=== PATIENT | male | born 1940 | race Caucasian/White ===

== ENCOUNTER 2020-10-13 17:26 | Inpatient (IN) | payer OTHER ==
[2020-10-13] MEDS ORDERED: ACETAMINOPHEN 1000 MG/100 ML VIAL (NON FORMULARY) IVPB ONE (20:04)
[2020-10-13 21:42] LABS: HEMOGLOBIN 13.7 GM/dL (11.7-16.9); MONO % 7.8 % (3.8-10.2); NEUT % 53.2 % (42.8-82.8)
[2020-10-13 21:47] LABS: EOS % 7.4 % (0-4.5); HEMATOCRIT 40.1 % (35.4-49); LYMPH % 27.6 % (8-40); MCH 31.7 pg (25.7-33.7); MCHC 34.1 g/dl (32.0-35.9); MEAN CELL VOLUME 92.9 fl (80-96); MEAN PLT VOLUME 7.8 fl (7.5-11.1); PLATELET COUNT 172 K/MM3 (134-434); RBC 4.32 M/mm3 (4.00-5.60); WHITE BLOOD COUNT 7.3 K/mm3 (4.0-10.0)
[2020-10-13] MEDS ORDERED: ACETAMINOPHEN INJECTION 100 ML IVPB ONE (21:48)
[2020-10-13 21:50] LABS: INR 1.1 (0.83-1.09); PROTHROMBIN TIME (PATIENT) 13.5 SEC (9.7-13.0)
[2020-10-13 21:52] LABS: ACTIVATED PTT 28.7 SECONDS (25.2-36.5)
[2020-10-13 22:05] LABS: CHLORIDE 107 mmol/L (98-107); SODIUM 139 mmol/L (136-145)
[2020-10-13 22:07] LABS: ALBUMIN 3.9 g/dl (3.4-5.0); ANION GAP 6 MMOL/L (8-16); BLOOD UREA NITROGEN 35.2 mg/dL (7-18); CALCIUM 8.6 mg/dL (8.5-10.1); CO2 26 mmol/L (21-32)
[2020-10-13 22:08] LABS: GLUCOSE,RANDOM 77 mg/dL (74-106)
[2020-10-13 22:10] LABS: SGPT/ALT 31 U/L (13-61)
[2020-10-13 22:11] LABS: CREATININE 1.5 mg/dL (0.55-1.3); SGOT/AST 75 U/L (15-37)
[2020-10-13 22:12] LABS: BILIRUBIN,TOTAL 0.8 mg/dL (0.2-1); TOT PROT 7.5 g/dl (6.4-8.2)
[2020-10-13 22:13] LABS: ALK PHOS 75 U/L (45-117)
[2020-10-13] MEDS ORDERED: SODIUM CHLORIDE 1,000 ML IV STA (22:27)
[2020-10-13 22:40] LABS: ERYTHROCYTE SEDIMENTATION RATE 11 mm/hr (0-20)
[2020-10-13 22:44] LABS: ANISOCYTOSIS 1+; MACROCYTOSIS 1+; PLATELET ESTIMATE NORMAL
[2020-10-13] MEDS ORDERED: VANCOMYCIN 1,000 MG in DEXTROSE 5%-WATER - 250 ML IVPB ONE (22:50)
[2020-10-13] MEDS ORDERED: PIPERACILLIN/TAZOB 3.375 GM 3.375 GM in DEXTROSE 5%-WATER - 50 ML IVPB ONE (22:50)
[2020-10-13] MEDS ORDERED: PIPERACILLIN/TAZOB 3.375 GM 3.375 GM/50 ML BAG IVPB ONE (23:21)
[2020-10-14] MEDS ORDERED: VANCOMYCIN 1 GRAM (PRE-DOCKED) 1,000 MG/250 ML BAG IVPB ONE (00:07)
[2020-10-14 04:23] LABS: URINE APPEARANCE CLOUDY; URINE BILIRUBIN NEGATIVE (NEGATIVE); URINE COLOR YELLOW; URINE GLUCOSE (UA) NEGATIVE (NEGATIVE); URINE KETONE NEGATIVE (NEGATIVE); URINE LEUK ESTERASE NEGATIVE (NEGATIVE); URINE NITRITE NEGATIVE (NEGATIVE); URINE PROTEIN NEGATIVE (NEGATIVE); URINE UROBILINOGEN 0.2 mg/dL (0.2-1.0)
[2020-10-14 06:11] LABS: BASO % 2.6 % (0-2.0); EOS % 9.7 % (0-4.5); HEMATOCRIT 35.3 % (35.4-49); HEMOGLOBIN 12.4 GM/dL (11.7-16.9); LYMPH % 25.9 % (8-40); MCH 32.4 pg (25.7-33.7); MCHC 35.3 g/dl (32.0-35.9); MEAN CELL VOLUME 91.8 fl (80-96); MEAN PLT VOLUME 7.4 fl (7.5-11.1); MONO % 9.3 % (3.8-10.2); NEUT % 52.5 % (42.8-82.8); PLATELET COUNT 163 K/MM3 (134-434); RBC 3.84 M/mm3 (4.00-5.60); RDW 16.4 % (11.9-15.9); WHITE BLOOD COUNT 5.7 K/mm3 (4.0-10.0)
[2020-10-14 06:37] LABS: ALBUMIN 3.3 g/dl (3.4-5.0); BLOOD UREA NITROGEN 36.7 mg/dL (7-18)
[2020-10-14 06:40] LABS: CREATININE 1.3 mg/dL (0.55-1.3)
[2020-10-14 06:41] LABS: BILIRUBIN,TOTAL 0.7 mg/dL (0.2-1); TOT PROT 6.1 g/dl (6.4-8.2)
[2020-10-14] MEDS ORDERED: PIPERACILLIN/TAZOB 3.375 GM 3.375 GM/50 ML BAG IVPB ONE ×2 (07:06→12:19)
[2020-10-14] MEDS ORDERED: LEVOTHYROXINE NA 25 MCG TABLET (FP) ONE (07:06)
[2020-10-14] MEDS: PIPERACILLIN/TAZOB 3.375 GM 3.375 GM in DEXTROSE 5%-WATER - 50 ML IVPB SCH ×3 (07:27→17:55)
[2020-10-14] MEDS: LEVOTHYROXINE NA 50 MCG TABLET (FP) PO SCH (07:27)
[2020-10-14] MEDS ORDERED: FUROSEMIDE 40 MG TABLET (FP) ONE (09:13)
[2020-10-14] MEDS ORDERED: ASPIRIN 81 MG CHEWABLE TABLETS ONE (09:13)
[2020-10-14] MEDS ORDERED: AMIODARONE HCL 200 MG TABLET ONE (09:14)
[2020-10-14] MEDS ORDERED: FOLIC ACID 1 MG TABLET (FP) ONE (09:14)
[2020-10-14] MEDS: ASPIRIN 81 MG CHEWABLE TABLETS PO SCH (09:41)
[2020-10-14] MEDS: FOLIC ACID 1 MG TABLET (FP) PO SCH (09:42)
[2020-10-14] MEDS: FUROSEMIDE 40 MG TABLET (FP) PO SCH (09:42)
[2020-10-14] MEDS: AMIODARONE HCL 200 MG TABLET PO SCH (09:42)
[2020-10-14] MEDS: TIOTROPIUM BROMIDE 2.5 MCG (SPIRIVA) RESPIMAT INHALER IH SCH (10:41)
[2020-10-14 12:47] LABS: ANISOCYTOSIS 0; MACROCYTOSIS 0; PLATELET ESTIMATE DECREASED
[2020-10-14 17:03] VITALS: BMI 32.1
[2020-10-14] MEDS ORDERED: PIPERACILLIN/TAZOBACTAM 3.375 GM VIAL IVPB ONE (17:15)
[2020-10-14] MEDS ORDERED: DEXTROSE 5%-WATER - 50 ML IVPB ONE (17:15)
[2020-10-14] MEDS: ENOXAPARIN NA (PORCINE) 40 MG/0.4 ML DISP.SYRIN SQ SCH (18:30)
[2020-10-14] MEDS ORDERED: guaiFENesin 200 MG/10 ML 10 ML UNIT-DOSE CUPS PO PRN (19:41)
[2020-10-14] MEDS: ATORVASTATIN CA 20 MG TABLET (FP) PO SCH (21:04)
[2020-10-15] MEDS ORDERED: VANCOMYCIN 1 GM PREMIX - 1 GM/200 ML BAG IVPB SCH (00:01)
[2020-10-15] MEDS ORDERED: PIPERACILLIN/TAZOBACTAM 3.375 GM VIAL IVPB ONE ×3 (01:08→16:51)
[2020-10-15] MEDS ORDERED: DEXTROSE 5%-WATER - 50 ML IVPB ONE ×3 (01:08→16:52)
[2020-10-15] MEDS: PIPERACILLIN/TAZOB 3.375 GM 3.375 GM in DEXTROSE 5%-WATER - 50 ML IVPB SCH ×3 (01:48→17:26)
[2020-10-15] MEDS ORDERED: PIPERACILLIN/TAZOB 3.375 GM 3.375 GM in DEXTROSE 5%-WATER - 50 ML IVPB SCH (02:00)
[2020-10-15] MEDS: LEVOTHYROXINE NA 50 MCG TABLET (FP) PO SCH (06:13)
[2020-10-15] MEDS: COLLAGENASE CLOSTRIDIUM HIST. 30 GRAMS TUBE TP SCH ×2 (07:18→09:50)
[2020-10-15 09:24] LABS: HEMATOCRIT 38.7 % (35.4-49); HEMOGLOBIN 13.3 GM/dL (11.7-16.9); MCH 31.9 pg (25.7-33.7); MCHC 34.4 g/dl (32.0-35.9); MEAN CELL VOLUME 92.7 fl (80-96); PLATELET COUNT 166 K/MM3 (134-434); RBC 4.17 M/mm3 (4.00-5.60); WHITE BLOOD COUNT 6.6 K/mm3 (4.0-10.0)
[2020-10-15] MEDS: ASPIRIN 81 MG CHEWABLE TABLETS PO SCH (09:49)
[2020-10-15] MEDS: TIOTROPIUM BROMIDE 2.5 MCG (SPIRIVA) RESPIMAT INHALER IH SCH (09:50)
[2020-10-15] MEDS: AMIODARONE HCL 200 MG TABLET PO SCH (09:50)
[2020-10-15] MEDS: FOLIC ACID 1 MG TABLET (FP) PO SCH (09:50)
[2020-10-15] MEDS: FUROSEMIDE 40 MG TABLET (FP) PO SCH (09:50)
[2020-10-15] MEDS: ENOXAPARIN NA (PORCINE) 40 MG/0.4 ML DISP.SYRIN SQ SCH (09:50)
[2020-10-15 11:25] LABS: CALCIUM 8.4 mg/dL (8.5-10.1)
[2020-10-15 11:26] LABS: ALBUMIN 3.9 g/dl (3.4-5.0); BLOOD UREA NITROGEN 27.8 mg/dL (7-18)
[2020-10-15 11:29] LABS: CREATININE 1.1 mg/dL (0.55-1.3)
[2020-10-15 11:30] LABS: TOT PROT 6.6 g/dl (6.4-8.2)
[2020-10-15] MEDS: ATORVASTATIN CA 20 MG TABLET (FP) PO SCH (22:14)
[2020-10-16] MEDS ORDERED: PIPERACILLIN/TAZOBACTAM 3.375 GM VIAL IVPB ONE ×2 (01:08→10:41)
[2020-10-16] MEDS ORDERED: DEXTROSE 5%-WATER - 50 ML IVPB ONE ×2 (01:09→10:41)
[2020-10-16] MEDS: PIPERACILLIN/TAZOB 3.375 GM 3.375 GM in DEXTROSE 5%-WATER - 50 ML IVPB SCH ×2 (02:31→10:48)
[2020-10-16] MEDS: LEVOTHYROXINE NA 50 MCG TABLET (FP) PO SCH (06:13)
[2020-10-16 10:45] LABS: CALCIUM 8.8 mg/dL (8.5-10.1)
[2020-10-16 10:46] LABS: ALBUMIN 3.8 g/dl (3.4-5.0); BLOOD UREA NITROGEN 21.8 mg/dL (7-18)
[2020-10-16 10:48] LABS: CREATININE 1.3 mg/dL (0.55-1.3); PHOSPHOROUS 2.5 mg/dL (2.5-4.9)
[2020-10-16] MEDS: ENOXAPARIN NA (PORCINE) 40 MG/0.4 ML DISP.SYRIN SQ SCH (10:48)
[2020-10-16] MEDS: ASPIRIN 81 MG CHEWABLE TABLETS PO SCH (10:49)
[2020-10-16] MEDS: AMIODARONE HCL 200 MG TABLET PO SCH (10:49)
[2020-10-16] MEDS: COLLAGENASE CLOSTRIDIUM HIST. 30 GRAMS TUBE TP SCH (10:49)
[2020-10-16] MEDS: FUROSEMIDE 40 MG TABLET (FP) PO SCH (10:49)
[2020-10-16] MEDS: FOLIC ACID 1 MG TABLET (FP) PO SCH (10:49)
[2020-10-16 10:50] LABS: BILIRUBIN,TOTAL 0.7 mg/dL (0.2-1); TOT PROT 7.2 g/dl (6.4-8.2)
[2020-10-16 10:53] LABS: BASO % 1.2 % (0-2.0); EOS % 5.2 % (0-4.5); HEMATOCRIT 43.2 % (35.4-49); HEMOGLOBIN 15.2 GM/dL (11.7-16.9); LYMPH % 24.1 % (8-40); MCH 32.5 pg (25.7-33.7); MCHC 35.2 g/dl (32.0-35.9); MEAN CELL VOLUME 92.3 fl (80-96); MEAN PLT VOLUME 7.6 fl (7.5-11.1); MONO % 7.1 % (3.8-10.2); NEUT % 62.4 % (42.8-82.8); PLATELET COUNT 179 K/MM3 (134-434); RBC 4.68 M/mm3 (4.00-5.60); RDW 15.8 % (11.9-15.9); WHITE BLOOD COUNT 7.7 K/mm3 (4.0-10.0)
[2020-10-16 11:51] LABS: ANISOCYTOSIS 0; HELMET CELLS 0; HOWELL-JOLLY BODIES 0; MACROCYTOSIS 0; OVALOCYTE 0; PLATELET ESTIMATE NORMAL; ROULEAU 0; SICKELED CELLS 0; TARGET CELLS 0; TEAR DROP CELLS 0; TOXIC GRANULATION 0
[2020-10-16] MEDS: TIOTROPIUM BROMIDE 2.5 MCG (SPIRIVA) RESPIMAT INHALER IH SCH (20:18)
[2020-10-16] MEDS: ATORVASTATIN CA 20 MG TABLET (FP) PO SCH (22:45)
[2020-10-17] MEDS: LEVOTHYROXINE NA 50 MCG TABLET (FP) PO SCH (06:00)
[2020-10-17 09:56] LABS: BASO % 1.3 % (0-2.0); HEMATOCRIT 43.2 % (35.4-49); HEMOGLOBIN 14.8 GM/dL (11.7-16.9); LYMPH % 26.1 % (8-40); MCH 32.3 pg (25.7-33.7); MCHC 34.3 g/dl (32.0-35.9); MEAN CELL VOLUME 94.1 fl (80-96); MEAN PLT VOLUME 7.8 fl (7.5-11.1); MONO % 7.7 % (3.8-10.2); NEUT % 55.9 % (42.8-82.8); PLATELET COUNT 181 K/MM3 (134-434); RBC 4.59 M/mm3 (4.00-5.60); RDW 16.1 % (11.9-15.9)
[2020-10-17 10:15] LABS: ALBUMIN 4.1 g/dl (3.4-5.0); BLOOD UREA NITROGEN 31.3 mg/dL (7-18); CALCIUM 8.8 mg/dL (8.5-10.1); MAGNESIUM 2.2 mg/dL (1.8-2.4)
[2020-10-17 10:19] LABS: CREATININE 1.4 mg/dL (0.55-1.3)
[2020-10-17 10:20] LABS: BILIRUBIN,TOTAL 0.8 mg/dL (0.2-1); PHOSPHOROUS 3.6 mg/dL (2.5-4.9); TOT PROT 7.4 g/dl (6.4-8.2)
[2020-10-17] MEDS: FUROSEMIDE 40 MG TABLET (FP) PO SCH (11:08)
[2020-10-17] MEDS: FOLIC ACID 1 MG TABLET (FP) PO SCH (11:08)
[2020-10-17] MEDS: AMIODARONE HCL 200 MG TABLET PO SCH (11:08)
[2020-10-17] MEDS: ASPIRIN 81 MG CHEWABLE TABLETS PO SCH (11:09)
[2020-10-17 11:15] LABS: ANISOCYTOSIS 0; HELMET CELLS 0; HOWELL-JOLLY BODIES 0; MACROCYTOSIS 0; OVALOCYTE 0; PLATELET ESTIMATE NORMAL; ROULEAU 0; SICKELED CELLS 0; TARGET CELLS 0; TEAR DROP CELLS 0; TOXIC GRANULATION 0
[2020-10-17] MEDS: TIOTROPIUM BROMIDE 2.5 MCG (SPIRIVA) RESPIMAT INHALER IH SCH (11:15)
[2020-10-17] MEDS: ENOXAPARIN NA (PORCINE) 40 MG/0.4 ML DISP.SYRIN SQ SCH (11:16)
[2020-10-17] MEDS: LORATADINE 10 MG TABLET PO SCH (12:46)
[2020-10-17] MEDS: COLLAGENASE CLOSTRIDIUM HIST. 30 GRAMS TUBE TP SCH (13:00)
[2020-10-17] MEDS: ATORVASTATIN CA 20 MG TABLET (FP) PO SCH (21:18)
[2020-10-18] MEDS: LEVOTHYROXINE NA 50 MCG TABLET (FP) PO SCH (06:08)
[2020-10-18] MEDS: ASPIRIN 81 MG CHEWABLE TABLETS PO SCH (09:31)
[2020-10-18] MEDS: AMIODARONE HCL 200 MG TABLET PO SCH (09:31)
[2020-10-18] MEDS: FOLIC ACID 1 MG TABLET (FP) PO SCH (09:31)
[2020-10-18] MEDS: FUROSEMIDE 40 MG TABLET (FP) PO SCH (09:31)
[2020-10-18] MEDS: ENOXAPARIN NA (PORCINE) 40 MG/0.4 ML DISP.SYRIN SQ SCH (09:35)
[2020-10-18] MEDS: TIOTROPIUM BROMIDE 2.5 MCG (SPIRIVA) RESPIMAT INHALER IH SCH (09:35)
[2020-10-18] MEDS: COLLAGENASE CLOSTRIDIUM HIST. 30 GRAMS TUBE TP SCH (11:50)
[2020-10-18] MEDS: LORATADINE 10 MG TABLET PO SCH (12:13)
[2020-10-18] MEDS: ATORVASTATIN CA 20 MG TABLET (FP) PO SCH (21:27)
[2020-10-19] MEDS: LEVOTHYROXINE NA 50 MCG TABLET (FP) PO SCH (06:02)
[2020-10-19] MEDS: AMIODARONE HCL 200 MG TABLET PO SCH (10:35)
[2020-10-19] MEDS: FOLIC ACID 1 MG TABLET (FP) PO SCH (10:36)
[2020-10-19] MEDS: ASPIRIN 81 MG CHEWABLE TABLETS PO SCH (10:36)
[2020-10-19] MEDS: FUROSEMIDE 40 MG TABLET (FP) PO SCH (10:36)
[2020-10-19] MEDS: ENOXAPARIN NA (PORCINE) 40 MG/0.4 ML DISP.SYRIN SQ SCH (10:40)
[2020-10-19] MEDS: COLLAGENASE CLOSTRIDIUM HIST. 30 GRAMS TUBE TP SCH (10:40)
[2020-10-19] MEDS: TIOTROPIUM BROMIDE 2.5 MCG (SPIRIVA) RESPIMAT INHALER IH SCH (10:40)
[2020-10-19] MEDS: LORATADINE 10 MG TABLET PO SCH (13:06)
[2020-10-19] MEDS: ATORVASTATIN CA 20 MG TABLET (FP) PO SCH (22:17)
[2020-10-20] MEDS: LEVOTHYROXINE NA 50 MCG TABLET (FP) PO SCH (06:28)
[2020-10-20] MEDS: ENOXAPARIN NA (PORCINE) 40 MG/0.4 ML DISP.SYRIN SQ SCH (09:42)
[2020-10-20] MEDS: AMIODARONE HCL 200 MG TABLET PO SCH (09:43)
[2020-10-20] MEDS: TIOTROPIUM BROMIDE 2.5 MCG (SPIRIVA) RESPIMAT INHALER IH SCH (09:43)
[2020-10-20] MEDS: COLLAGENASE CLOSTRIDIUM HIST. 30 GRAMS TUBE TP SCH (09:43)
[2020-10-20] MEDS: ASPIRIN 81 MG CHEWABLE TABLETS PO SCH (09:43)
[2020-10-20] MEDS: FUROSEMIDE 40 MG TABLET (FP) PO SCH (09:43)
[2020-10-20] MEDS: FOLIC ACID 1 MG TABLET (FP) PO SCH (09:43)
[2020-10-20] MEDS: LORATADINE 10 MG TABLET PO SCH (13:28)
[2020-10-20] MEDS: ATORVASTATIN CA 20 MG TABLET (FP) PO SCH (21:43)
[2020-10-21] MEDS: LEVOTHYROXINE NA 50 MCG TABLET (FP) PO SCH (06:06)
[2020-10-21 07:34] VITALS: TEMP 97.5
[2020-10-21] MEDS: FUROSEMIDE 40 MG TABLET (FP) PO SCH (09:03)
[2020-10-21] MEDS: ENOXAPARIN NA (PORCINE) 40 MG/0.4 ML DISP.SYRIN SQ SCH (09:03)
[2020-10-21] MEDS: FOLIC ACID 1 MG TABLET (FP) PO SCH (09:03)
[2020-10-21] MEDS: ASPIRIN 81 MG CHEWABLE TABLETS PO SCH (09:03)
[2020-10-21] MEDS: AMIODARONE HCL 200 MG TABLET PO SCH (09:03)
[2020-10-21] MEDS: TIOTROPIUM BROMIDE 2.5 MCG (SPIRIVA) RESPIMAT INHALER IH SCH (09:04)
[2020-10-21 09:24] VITALS: BP 138/72; PULSE 80
[2020-10-21] MEDS: COLLAGENASE CLOSTRIDIUM HIST. 30 GRAMS TUBE TP SCH (11:24)
== END 2020-10-21 11:45 | DRG 637 ==
LOC: JER 17:26 → JERBED 22:51 → J5S 10-14 13:14
PROVIDERS: ADMIT Internal Medicine; ATTEND Internal Medicine
DX: E11.621 Type 2 diabetes mellitus with foot ulcer (principal); U07.1 COVID-19; L03.115 Cellulitis of right lower limb; I10 Essential (primary) hypertension; E78.5 Hyperlipidemia, unspecified; L97.509 Non-pressure chronic ulcer of other part of unspecified foot with unspecified severity; E11.40 Type 2 diabetes mellitus with diabetic neuropathy, unspecified; I73.9 Peripheral vascular disease, unspecified; C45.9 Mesothelioma, unspecified; I25.10 Atherosclerotic heart disease of native coronary artery without angina pectoris; E03.9 Hypothyroidism, unspecified
CPT/HCPCS: 36415; 71045-TC-FY; 73630-TC-RT-FY; 80053; 81003; 83605; 83735; 84100; 84132; 84484; 85025; 85027; 85610; 85651; 85730; 86140; 86682; 86769; 87040; 87086; 93005; 93010; 93971-TC; 97116-GP; 97162-GP; 99285-25; C9803; J0131; U0003; U0005